=== PATIENT | male | born 1995 | race Caucasian/White ===

== ENCOUNTER 2016-12-18 14:51 | Emergency (ER) | payer OTHER ==
[~2016-12-18] VITALS: Ht 175.3 cm; Wt 68.2 kg
[2016-12-18 14:56] VITALS: TEMP 98.4
[2016-12-18 16:38] LABS: BASO % 0.5 % (0.0-2.0); EOS # 0.2 (0.0-0.7); EOS % 2.7 % (0-4.0); HEMATOCRIT 42.1 % (42.0-52.0); HEMOGLOBIN 14.3 g/dl (13.5-18.0); LYMPH # 2.5 (1.2-3.4); MEAN CELL VOLUME 93 fl (80.0-100.0); MEAN CORPUSCULAR HEMOGLOBIN 32 pg (27.0-31.0); MEAN CORPUSCULAR HGB CONC 34 g/dl (33.0-37.0); MEAN PLATELET VOLUME 9.8 fl (7.4-10.4); MONO # 0.7 (0.1-0.6); MONO % 9.5 % (1.7-9.3); PLATELET COUNT 244 K/mm3 (130-400); RED BLOOD COUNT 4.54 M/mm3 (4.20-5.60); REDCELL DISTRIBUTION WIDTH-CV 12.5 % (11.5-14.5); WHITE BLOOD COUNT 7.5 K/mm3 (4.8-10.8)
[2016-12-18 17:00] LABS: ADJUSTED CALCIUM 8.7 mg/dL (8.4-10.2); ALBUMIN 4.9 gm/dL (3.5-5.0); BILIRUBIN,TOTAL 1.6 mg/dL (0.0-1.0); CALCIUM 9.4 mg/dL (8.4-10.2); CREATININE, serum 0.88 mg/dL (0.66-1.25); POTASSIUM 3.9 mmol/L (3.4-5.0); TOTAL PROTEIN 7.5 gm/dL (6.4-8.2)
[2016-12-18 17:02] LABS: C-REACTIVE PROTEIN 0.5 mg/dL (0.0-0.9)
[2016-12-18 17:38] VITALS: BP 118/86; PULSE 83
== END 2016-12-18 17:40 | disposition home or self-care (01) ==
LOC: COL.ER 14:51
PROVIDERS: Family Medicine
DX: K92.2 Gastrointestinal hemorrhage, unspecified (principal)
CPT/HCPCS: J7030; Q9967

== ENCOUNTER 2017-04-11 13:52 | Emergency (ER) | payer OTHER ==
[~2017-04-11] VITALS: Ht 175.3 cm; Wt 65.9 kg
[2017-04-11 13:55] VITALS: TEMP 99.2
[2017-04-11] MEDS ORDERED: ZOFRAN ODT4 MG PO (14:55)
[2017-04-11 15:35] VITALS: BP 114/68; PULSE 84
== END 2017-04-11 15:35 | disposition home or self-care (01) ==
LOC: COL.ER 13:52
DX: F10.129 Alcohol abuse with intoxication, unspecified (principal)
CPT/HCPCS: J1885; J2405; J2765; J7030